=== PATIENT | female | born 1990 | race Caucasian/White ===

== ENCOUNTER → 2022-03-13 14:11 | Outpatient (BNVA) | payer OTHER, SELFPAY | PROVIDERS: PCP Physician Assistant; Visit Provider Podiatrist Foot & Ankle Surgery | DX: M79.672 Pain in left foot (principal); M79.671 Pain in right foot; M62.40 Contracture of muscle, unspecified site; E10.10 Type 1 diabetes mellitus with ketoacidosis without coma | CPT/HCPCS: 73630; 83036 ==

== ENCOUNTER 2022-03-21 12:48 | Day surgery (SDC) | payer OTHER, SELFPAY ==
[2022-03-20 13:58] VITALS: BMI 38.9
[2022-03-21] VITALS (8 sets, daily range): BP systolic 113–131; BP diastolic 59–87; PULSE 67–82; RESP 16–18; TEMP 36.1–36.8; O2SAT 95–99
[2022-03-21 12:59] LABS: OR HCG Qualitative Urine Negative (Negative)
[2022-03-21] MEDS: acetaminophen 1,000 MG/100 ML PIGGYBACK 400 MG IV (13:41)
[2022-03-21] MEDS: sodium chloride 0.9% 1,000 ML 30 ML IV (13:41)
--- NOTE | 2022-03-21 14:02 | W.PM.OPSUD ---
Surgery/Procedure H&P Update DATE OF PROCEDURE: March 21, 2022 DATE H&P PERFORMED: 03/18/22 CHANGES TO PREVIOUS DOCUMENTATION: no changes PREOP DIAGNOSIS: Right foot extensor tendon contracture PLANNED PROCEDURE: Operation Date: 03/21/22 14:10 Proposed Procedures p Right foot extensor hallucis longus lengthening CPT 92835 M62.471(Right) - Cedrick Rodriguez DPM
[2022-03-21] MEDS: ceFAZolin 2,000 MG in sodium chloride 0.9% (plus) 50 ML 100 MG IV (14:09)
--- NOTE | 2022-03-21 14:28 | ANES.PREANE2 ---
Pre-Anesthetic Assessment Height/Weight: Height 1.6 m Weight 99.79 kg Temp Pulse Resp BP Pulse Ox O2 Del Method 98.2 F 82 18 131/68 97 03/21/22 13:09 03/21/22 13:09 03/21/22 13:09 03/21/22 13:09 03/21/22 13:09 03/21/22 13:40 Preop Diagnosis: Right foot extensor tendon contracture Operation Date: 03/21/22 14:10 Proposed Procedures p Right foot extensor hallucis longus lengthening CPT 39818 M62.471(Right) - Cedrick Rodriguez DPM Familial anesthetic complications: none Was Beta Danilo taken within 24 hours: N/A Was Clonidine taken within 24 hours: N/A Last intake: Intake Last Liquid Date 03/21/22 Last Liquid Time 07:00 Last Solid Date 03/21/22 Last Solid Time 01:00 Social No alcohol and No tobacco Exam alert, oriented x 3, clear to auscultation bilaterally and regular rate & rhythm Airway Submandibular: within normal limits Cervical ROM: within normal limits Mallampati: Class II Dentition: full Pulmonary Asthma Metabolic Morbid Obesity Anesthetic Plan ASA status: 2 Anesthesia: MAC Medications/Allergies Home Medications Medication Instructions Recorded Confirmed Last Taken Type albuterol sulfate 90 mcg/actuation 1 puff inhalation QID 03/13/22 03/21/22 Unknown History aerosol inhaler Allergies Allergy/AdvReac Type Severity Reaction Status Date / Time No Known Allergies Allergy Verified 03/20/22 13:54 Current Medications Generic Name Dose Route Start Last Admin Trade Name Freq PRN Reason Stop Dose Admin Sodium Chloride 1,000 mls @ 30 mls/hr 03/21/22 13:00 03/21/22 13:41 Sodium Chloride 0.9% IV 03/22/22 12:59 30 mls/hr .Q24H MIESHA Administration PFSH Anesthesia Family History Grandmother Cancer Breast, Thyroid, ovarian Social History Smoking and tobacco status: former smoker Alcohol intake: never Data Anesthesia Cardiac Studies: No Data to Display
[2022-03-21] MEDS: ibuprofen 800 mg tablet PO (16:15)
--- NOTE | 2022-03-23 12:17 | P.OP_ITS ---
Operative Report Date of procedure: March 23, 2022 Pre-op diagnosis: Preop Diagnosis Right foot extensor tendon contracture Post-op diagnosis: Same Post-op findings: Contracted right foot extensor hallucis longus tendon and first metatarsophalangeal joint capsule Procedure done: Extensor hallucis longus lengthening of right foot CPT 70576 Implants: None Surgeon: Denise Dubose.P.MPrashant Estimated blood loss: Less than 5 cc Complications: None Findings: See above Procedure: Patient is a 31-year-old female that has a history of right foot contracted extensor hallucis longus tendon with fixated hallux extensus. The patient has had the aforementioned chief complaint for some time. Conservative treatment measures have been attempted and the patient has opted for surgical intervention at this time. A lengthy discussion regarding the procedure, including risks and complications has been had with the patient and is noted in the recent clinic note. Written and verbal consent have been obtained. All patient questions have been answered to the patient?s satisfaction. No written or verbal guarantees have been given or implied. The patient has been NPO since midnight. The history has been reviewed and the history and physical is current. The signed consent was confirmed and placed in the patient chart. Patient imaging has been reviewed and is consistent with the diagnosis. Under mild sedation, the patient was brought into the operating room and placed on the table in the supine position. IV antibiotics were given by the anesthesia team as preoperative surgical prophylaxis. IV sedation was then performed by the anesthesia team. A local field block was then performed using 0.5% Marcaine plain. A pneumatic tourniquet was then placed about the right ankle. The operative extremity was then prepped and draped in the usual fashion. The extremity was then elevated and exsanguinated before the tourniquet was inflated to 250 mmHg. After inflation, the following procedure was then performed. Attention was directed to the dorsal aspect of the right first metatarsophalangeal joint where a 5 cm incision was made medial to the extensor hallucis longus tendon. Dissection was carried down through subcutaneous and superficial fascia to the level of the tendon. A 15 blade was then used to split the tendon longitudinally before making a transverse split medially distally and laterally proximally in classic Z-lengthening fashion. There were noted to be adhesions to the dorsal capsule of first metatarsophalangeal joint. These were released with a #15 blade and the hallux was noted to sit in an appropriate anatomical location. With the hallux in the appropriate position the extensor hallucis longus tendon was repaired at this length using 3-0 Ethibond. The patient was noted to have increased dorsiflexion at this point. The site was then irrigated with copious amounts sterile saline before attention was directed to closure. Deep tissue was closed with 3-0 Vicryl followed by subcuticular closure with 4-0 Vicryl and skin closed with 4-0 nylon in horizontal mattress fashion. The tourniquet was released and good hyperemic response was noted to all digits of the right foot. The incision site was dressed with Adaptic 4 x 4 gauze Kerlix and Hector bandage. The patient tolerated the procedure and anesthesia well and without complication. The patient was transported from the operating room to the recovery room with vital signs stable and vascular status intact to all digits of the right foot. The patient was given both written and verbal instructions to remain weightbearing as tolerated in postoperative shoe to the operative extremity, to keep dressings/splint clean, dry and intact and to take pain m edication as directed. The patient will follow-up in the outpatient setting at their scheduled appointment. The patient was discharged with my personal number and was instructed to call if any questions or issues should arise. They were discharged home once anesthesia criteria was met.
== END 2022-03-21 16:30 | disposition home or self-care (01) ==
PROVIDERS: Anesthesiology; PCP Physician Assistant; Visit Provider Podiatrist Foot & Ankle Surgery
PROC: (CPT 28261; principal; 2022-03-21 14:00)
DX: M24.574 Contracture, right foot (principal); J45.909 Unspecified asthma, uncomplicated; E66.01 Morbid (severe) obesity due to excess calories; Z68.39 Body mass index [BMI] 39.0-39.9, adult; Z87.891 Personal history of nicotine dependence
CPT/HCPCS: 27685; 81025; 84703; J0131; J0690; J2250; J2704; J3010; J3490; J7030

== ENCOUNTER 2023-12-30 00:45 | Emergency (ER) | payer MEDICAID, SELFPAY ==
[2023-12-30 00:56] VITALS: BP 147/85; PULSE 78; RESP 16; TEMP 36.9; O2SAT 97; BMI 40.7
--- NOTE | 2023-12-30 01:01 | XRR_ITS ---
PROCEDURE INFORMATION: Exam: XR Right Ankle Exam date and time: 12/30/2023 1:25 AM Age: 33 years old Clinical indication: Injury or trauma; Fall; Other: Pain TECHNIQUE: Imaging protocol: Radiologic exam of the right ankle. Views: 3 or more views. COMPARISON: CR XR foot RT min 3V* [id number] 03/13/2022 2:16 PM FINDINGS: Bones/joints: No acute fracture or dislocation. Mid tarsal degenerative changes. Soft tissues: Mild soft tissue swelling of the ankle. Trace ankle effusion. XR/XR ankle RT min 3V* [id number] IMPRESSION: 1. No acute fracture or dislocation. 2. Trace ankle effusion.
--- NOTE | 2023-12-30 01:02 | XRR_ITS ---
PROCEDURE INFORMATION: Exam: XR Right Foot Exam date and time: 12/30/2023 1:28 AM Age: 33 years old Clinical indication: Injury or trauma; Fall; Other: Pain TECHNIQUE: Imaging protocol: Radiologic exam of the right foot. Views: 3 or more views. COMPARISON: CR XR foot RT min 3V* [id number] 03/13/2022 2:16 PM FINDINGS: Bones/joints: No acute fracture or dislocation. Mid tarsal degenerative changes. Soft tissues: Trace ankle effusion. XR/XR foot RT min 3V* [id number] IMPRESSION: 1. No acute fracture or dislocation. 2. Trace ankle effusion.
--- NOTE | 2023-12-30 01:07 | ED_ITS ---
HPI - Extremity Problem General: Chief complaint: Extremity Injury, Lower Stated complaint: fell off porch right ankle foot injury Time Seen by Provider: 12/30/23 00:50 History of Present Illness: Patient fell off her porch and complaining of right lateral ankle pain. Patient has had previous right foot surgery by Dr. Tejada. Related Data Home Medications Medication Instructions Recorded Confirmed albuterol sulfate 90 mcg/actuation 1 puff inhalation QID 03/13/22 07/18/23 aerosol inhaler Previous Rx's Medication Instructions Recorded Wheelchair #1 ea 03/28/22 Custom Inserts #1 ea 07/24/22 meloxicam 7.5 mg tablet 7.5 mg PO .Twice daily #14 tabs 12/30/23 Allergies Allergy/AdvReac Type Severity Reaction Status Date / Time No Known Allergies Allergy Verified 12/30/23 01:00 Review of Systems General: Reports: 10 or more systems reviewed and unremarkable except in HPI and below PFSH ED PFSH: Family History Grandmother Cancer Breast, Thyroid, ovarian Social History Smoking and tobacco/nicotine status: former use of tobacco/nicotine Alcohol intake: never Female Reproductive History: Date of last menstrual period: 06/25/23 Physical Exam Const: COMMON NORMALS: no acute distress, average body habitus, patient oriented x3, no limitations, healthy appearing, alert and well nourished Neck/C-Spine: COMMON NORMALS: no JVD Chest: COMMONS NORMALS: normal inspection of the chest and normal palpation of entire chest wall Resp: COMMON NORMALS: normal respiratory effort, No retractions, No use of accessory muscles and clear to auscultation bilaterally AUSCULTATION: clear to auscultation bilaterally Cardio: COMMON NORMALS: no JVD, regular rate, regular rhythm, S1 normal heart sound present, S2 normal heart sound present, No gallops present (Cardio), No clicks present (Cardio), No murmurs present (Cardio) and No rub (Cardio) RATE: regular rate RHYTHM: regular rhythm HEART SOUNDS: S1 normal heart sound present and S2 normal heart sound present GI: COMMON NORMALS: Normal to inspection, nondistended, normoactive bowel sounds present, Soft to palpation, non-tender, No hepatosplenomegaly present and no masses PALPATION: Yes Soft to palpation and Yes No hepatosplenomegaly present Extremity: NARRATIVE EXTREMITY EXAM: Right lateral ankle tenderness with palpation mild swelling, limited range of motion secondary to pain, no obvious step-off crepitus or deformity Neuro: COMMON NORMALS: patient oriented x3 SENSORIUM/ORIENTATION: Yes alert Course Vital Signs: Vital signs: Vital Signs Temperature 98.5 F 12/30/23 00:56 Pulse Rate 78 12/30/23 02:20 Respiratory Rate 16 12/30/23 00:56 Blood Pressure 143/101 12/30/23 02:20 Pulse Oximetry 98 12/30/23 02:20 Oxygen Delivery Me thod Room Air 12/30/23 00:56 MDM - Extremity (Nontraumatic) Medical Decision Making X-rays were read by myself preliminary is negative for fracture. Patient be discharged home and we will call them with the official results of the x-rays. Medical Records I reviewed the patient's medical records. Lab Data I reviewed the patient's lab results. Radiology Impressions Foot X-Ray 12/30/23 01:02 IMPRESSION: 1. No acute fracture or dislocation. 2. Trace ankle effusion. All radiology interpretation(s) finalized by discharge Discharge Plan Discharge Patient Disposition: Home Clinical Impression: Right ankle sprain Qualifiers: Encounter type: initial encounter Involved ligament of ankle: unspecified ligament Qualified Code(s): S93.401A - Sprain of unspecified ligament of right ankle, initial encounter Condition: Stable Prescriptions: New meloxicam 7.5 mg tablet 7.5 mg PO .Twice daily Qty: 14 0RF No Action albuterol sulfate 90 mcg/actuation HFA aerosol inhaler 1 puff inhalation QID (DME) Custom Inserts See Rx Instructions .Route .MEDSUPPLY Qty: 1 0RF Rx Instructions: As directed (DME) Wheelchair See Rx Instructions .Route .MEDSUPPLY Qty: 1 0RF Rx Instructions: As directed to [facility].O.[facility] Discharge Orders: Discharge ED (Routine); Ordered 12/30/23 Ordered By: Khai Ellsworth Patient Instructions: Ankle Sprain (ED) Activity Restrictions/Additional Instructions: Your x-rays were preliminarily read by the radiologist as negative for fracture. We will call you with the results once we officially get them. If they are anything other than negative there may be a change in treatment. Otherwise follow-up with your family practitioner in the next 7 days for further evaluation as needed. Coding Level of Care Code ED Wet Machine Tender for Timothy Stoner
[2023-12-30 02:20] VITALS: BP 143/101; PULSE 78; O2SAT 98
[2023-12-30] MEDS: ibuprofen 800 mg tablet PO (02:55)
[2023-12-30] MEDS: acetaminophen 500 mg Tablet 1000 MG PO (04:04)
[2023-12-30 05:05] VITALS: BP 150/80; PULSE 74; O2SAT 98
== END 2023-12-30 05:08 | disposition home or self-care (01) ==
PROVIDERS: Emergency Provider Emergency Medicine
DX: S93.401A Sprain of unspecified ligament of right ankle, initial encounter (principal); Z87.891 Personal history of nicotine dependence; W17.89XA Other fall from one level to another, initial encounter
CPT/HCPCS: 73610; 73630; 99283; E0114

== ENCOUNTER 2024-10-30 19:58 | Emergency (ER) | payer MEDICAID, SELFPAY ==
--- OUTSIDE RECORDS SUMMARY | 2023-05-02 04:30 | XMS_ITS ---
Author Organization [facility] John montaño Billing Info Address [address] [place] [id number] Care Team Providers Care Provisioning Specialist Name Role Phone AIME RODRIGUEZ [phone] REASON FOR VISIT Hospital Encounters Encounter Location Date Provider Diagnosis [id number] [address] [place] [address] 05/02/2023 AIME RODRIGUEZ Plan Of Treatment No Information Progress Notes * Lana HAYESaDOB:1990 (34 yo F)Acc No.[id number]:05/02/2023 PROGRESS NOTE Patient: Vance MURPHY Provider: Karina RODRIGUEZ MD :1990 A ge:32 Y S ex:Female Date:05/02/2023 C HN#:[id number] Address:[address] [place], [place] [id number] Subjective: * Chief Complaints: * 1 . Hospital. * Medical History: Objective: * Vitals: Assessment: Plan: * Treatment: * Care Plan Details* * This progress note has not b een verified nor is it considered complete until locked and signed by the provider. Sign off status: Pending * Provider: Karina RODRIGUEZ MD Date: 05/02/2023 Generated for Jonn west/Fernando/eTjohnsmitting on: 10/30/2024 08:04 PM CDT
--- OUTSIDE RECORDS SUMMARY | 2024-10-30 20:03 | XMS_ITS | Continuity of Care Document ---
Author Organization [facility]. If a dditional information is needed, contact Health Information Management at [phone] Address [address] [place] [address] Phone Care Team Providers Care International Marketing Intern Name Role Phone Unavailable Unavailable Unavailable Unavailable Unavailable Unavailable Unavailable Unavailable Unavailable Unavailable Unavailable Unavailable Problems ENCOUNTER FOR OTHER SPECIFIE D SCREENING(Z36.89) Onset:12-May-2023 Comments:Onset Date: 20230502 O30.049(O30.049) Onset:02-May-2023 Comments:Onset Date: 20230502 O26.899(O26.899) Onset:02-May-2023 Comments:Onset Date: 20230502 Onset:02-May-2023 Shun Feldman MD Allergies and Adverse Reactions No Known Allergies(Allergy) Onset: 02-May-2023 Medications hydrOXYzine pamoate 25 MG Or al Capsule;25 MILLIGRAM PO QID PRN Start:02-May-2023 Comments:25 MG PO QID PRN As Needed for Abdominal Cramps/Pain Encounters Ambulatory 02-May-2023 18:47 EDDOC EDDOC Generic for EDM (Attending) [facility] pre-admission 02-May-2023 [facility]
--- OUTSIDE RECORDS SUMMARY | 2024-10-30 20:04 | XMS_ITS | Patient Health Record ---
Author Organization Karina BONILLA MD C Address [address] [place] [id number] Support Name Relationship Address Phone LUPE HAYES Guarantor Unknown [phone] Allergies No Known Allergies Reason For Referral No Information Medications Medication SIG (Take, Route, Frequency, Duration) Notes Start Date End Date Status Baby Aspirin 18mg Active Plan Of Treatment Pending Test Test Name Order Date UA DIP STICK 05/21/2021 Insurance Providers Payer Name Payer Address Payer Phone Subscriber Number Group Number Insured Name Patient Relationship to Insured Coverage Start Date Coverage End Date [employer] [address] [place] [address] [place] [address] LUPE HAYES Self - patient is the insured
--- OUTSIDE RECORDS SUMMARY | 2024-10-30 20:04 | XMS_ITS | Patient Health Record ---
Author Organization [facility] John montaño Billing Info Address [address] [place], [place] [id number] Support Name Relationship Address Phone Vance Christianson Guarantor Unknown [phone] Reason For Referral No Information Plan Of Treatment No Information Insurance Providers Payer Name Payer Address Payer Phone Subscriber Number Group Number Insured Name Patient Relationship to Insured Coverage Start Date Coverage End Date [facility] CHOICE PLUS POS [address] [address] [facility] [place], [place] [id number] [phone] [id number] Vance Christianson Self - patient is the insured 4
[2024-10-30 20:12] VITALS: BP 134/82; PULSE 72; RESP 16; TEMP 36.8; O2SAT 100; BMI 38.0
[2024-10-30 20:34] VITALS: BP 140/95; O2SAT 99
--- NOTE | 2024-10-30 21:37 | ED_ITS ---
Documented by User: Anatoly Blanc DO 10/30/24 23:12 HPI - Animal Bite 2 General: Chief Complaint: Animal Bite Stated Complaint: L middle to bit by a snake possible copperhead Time Seen by Provider: 10/30/24 20:23 History of Present Illness: Patient presents with a snake bite to the tip of the left middle toe that occurred at approximately 06:50 today. The patient believes it may have been a copperhead snake but is not certain of the species identification. Patient reports significant pain at the bite site and states they have not taken any pain medication prior to arrival. Patient is expressing considerable discomfort and requesting pain relief, specifically mentioning ibuprofen. Patient reports progressive swelling of the affected area over the past two hours. Patient has a history of previous snake bite with residual scar tissue. Medical history is significant for prediabetes. No known drug allergies. Related Data Home Medications ?Medication ?Instructions ?Recorded ?Confirmed albuterol sulfate 90 mcg/actuation 1 puff inhalation Q ID 03/13/22 07/18/23 aerosol inhaler Previous Rx's ?Medication ?Instructions ?Recorded Wheelchair #1 ea 03/28/22 Custom Inserts #1 ea 07/24/22 meloxicam 7.5 mg tablet 7.5 mg PO .Twice daily #14 t abs 12/30/23 cephalexin 500 mg capsule 500 mg PO BID 5 days #10 cap s 10/31/24 ondansetron 4 mg disintegrating 4 mg PO Q8H PRN nausea and 10/31/24 tablet vomiting #30 tabs oxycodone-acetaminophen 5 mg-325 1 tab PO TID PRN pain #20 tabs 10/31/24 mg tablet (Percocet) Allergies Allergy/AdvReac Type Severity Reaction Status Date / Time No Known Allergies Allergy Verified 12/30/23 01:00 Review of Systems 2 General: Reports: 10 or more systems reviewed and unremarkable except in HPI and below PFSH ED 2 PFSH: Family History Grandmother Cancer Breast, Thyroid, ovarian Social History Smoking and tobacco/nicotine status: former use of tobacco/nicotine Alcohol intake: never Physical Exam 2 Const: COMMON NORMALS: no acute distress, patient oriented x3, alert and well nourished HENMT: COMMON NORMALS: normocephalic HEAD & SCALP: normocephalic Eye: COMMON NORMALS: Equal, round and reactive pupils present, EOMs intact bilaterally and conjunctivae normal CONJUNCTIVA: Yes conjunctivae normal P UPIL: Yes Equal, round and reactive pupils present Neck/C-Spine: COMMON NORMALS: full ROM, no lymphadenopathy, supple, no meningeal signs, no JVD and Thyroid normal THYROID: Thyroid normal Chest: COMMONS NORMALS: normal inspection of the chest and normal palpation of entire chest wall Resp: COMMON NORMALS: normal respiratory effort, No retractions, No use of accessory muscles, clear to auscultation bilaterally and percussion normal A USCULTATION: clear to auscultation bilaterally PERCUSSION: percussion normal Cardio: COMMON NORMALS: no JVD GI: COMMON NORMALS: Normal to inspection, nondistended, normoactive bowel sounds present, Soft to palpation, non-tender, No hepatosplenomegaly present, no masses and no bruits PALPATION: Yes Soft to palpation and Yes No hepatosplenomegaly present Extremity: NARRATIVE EXTREMITY EXAM: Good capillary refill, bounding pulses, mild swelling around the ankle Neuro: COMMON NORMALS: patient oriented x3 SENSORIUM/ORIENTATION: Yes alert MENINGEAL SIGNS: Yes no meningeal signs Skin: COMMON NORMALS: no rashes or lesions noted, turgor normal and no jaundice GENERAL SKIN EXAM: no rashes or lesions noted and turgor normal Course 2 Vital Signs: Vital signs: Vital Signs Temperature 98.3 F 10/30/24 20:12 Pulse Rate 72 10/30/24 23:18 Respiratory Rate 17 10/30/24 23:18 Blood Pressure 106/64 10/30/24 23:18 Pulse Oximetry 100 10/30/24 23:18 Oxygen Delivery Me thod Room Air 10/30/24 23:18 MDM - Animal Bite Medical Decision Making 1. Snake Bite to Right Middle Toe, Possible Copperhead: - Although patient believes it was a copperhead snake, species identification remains uncertain - Will observe for signs of envenomation including progressive swelling, ecchymosis, and systemic symptoms - Obtain baseline laboratory studies including CBC, CMP, coagulation studies, and CPK - Copperhead bites typically do not require antivenom but will monitor closely - Will establish IV access for medication administration and in case antivenom becomes necessary 2. Pain Management: - Administer analgesics for pain control - Consider NSAIDs if no contraindications - Elevate affected extremity - Apply cold compresses to affected area 3. Prediabetes: - Monitor blood glucose levels during observation period - Continue home medications as appropriate 4. Disposition: - Extended observation required to monitor for progression of symptoms - Will reassess every 30-60 min and determine need for admission versus discharge in the next several hours or rarely the need for anti-venom. Re-evaluation at 23:00 patient has not had any significant swelling past the distal ankles she does report some pain that has been running up her legs but it does not appear to be appreciably swollen capillary refill and pulses still tend to be intact her pain is coming back somewhat her vital signs remained stable so far the labs that have returned after initial hemolysis of the labs have been within normal range. Will continue observation and then will plan on repeating labs in several hours and if no significant changes the patient will likely be able to be discharged home with conservative and observational care. I will have to sign this patient out to the overnight emergency department physician to follow-up on the labs and determine disposition. Lab Data 10/30/24 21:45 10/30/24 22:26 Laboratory Results WBC 11.90 10^3/uL (3.29-11.43) H 10/30/24 21:45 RBC 5.46 10^6/uL (3.85-5.65) 10/30/24 21:45 Hgb 15.70 g/dL (11.27-16.99) 10/30/24 21:45 Hct 46.8 % (36-47) 10/30/24 21:45 MCV 85.7 fl (85-98) 10/30/24 21:45 MCH 28.8 pg (27-33) 10/30/24 21:45 MCHC 33.5 g/dL (30-55) 10/30/24 21:45 RDW 12.9 % (12.1-15.1) 10/30/24 21:45 Plt Count 318 10^3/cmm (157-399) 10/30/24 21:45 MPV 9.6 fL (7.4-10.4) 10/30/24 21:45 Neut % (Auto) 72.3 % 10/30/24 21:45 Lymph % (Auto) 19.4 % 10/30/24 21:45 [place] % (Auto) 6.5 % 10/30/24 21:45 Eos % (Auto) 0.6 % 10/30/24 21:45 Baso % (Auto) 0.4 % 10/30/24 21:45 Neut # (Auto) 8.61 10^3/uL (1.8-7.7) H 10/30/24 21:45 Lymph # (Auto) 2.3 10^3/uL (0.8-4.8) 10/30/24 21:45 [place] # (Auto) 0.8 10^3/uL (0.2-0.9) 10/30/24 21:45 Eos # (Auto) 0.1 10^3/uL (0.0-0.8) 10/30/24 21:45 Baso # (Auto) 0.1 10^3/uL (0.0-0.1) 10/30/24 21:45 Nucleated RBC % (auto) 0 % 10/30/24 21:45 Nucleated RBCs # 0.0 /100WBC 10/30/24 21:45 PT 13.40 SECONDS (12.1-14.9) 10/30/24 22:26 INR 0.96 (0.8-1.2) 10/30/24 22:26 APTT 27.9 SECONDS (23.9-36.7) 10/30/24 22:26 D-Dimer <= 0.27 ug/mLFEU (0-0.59) 10/30/24 22:26 Sodium 140 mmol/L (136-145) 10/30/24 22:26 Potassium 3.7 mmol/L (3.5-5.1) 10/30/24 22:26 Chloride 102 mmol/L (98-107) 10/30/24 22:26 Carbon Dioxide 29 mmol/L (22-29) 10/30/24 22:26 Anion Gap 12.7 (5-19) 10/30/24 22:26 BUN 12 mg/dL (6-20) 10/30/24 22:26 Creatinine 0.7 mg/dL (0.5-0.9) 10/30/24 22:26 GFR Calculation 97.0 mL/min (90-130) 10/30/24 22:26 Glucose 80 mg/dL (65-115) 10/30/24 22:26 Calculated Osmolality 289 mOsm/kg (285-295) 10/30/24 22:26 Lactic Acid Cancelled 10/30/24 21:45 Calcium 9.3 mg/dL (8.5-10.5) 10/30/24 22:26 Total Bilirubin 0.3 mg/dL (0.15-1.2) 10/30/24 22:26 AST 20 U/L (0-32) 10/30/24 22:26 ALT 30 U/L (0-33) 10/30/24 22:26 Alkaline Phosphatase 83 U/L (35-105) 10/30/24 22:26 Creatine Kinase 140 U/L (26-192) 10/30/24 22:26 Total Protein 6.8 g/dL (6.6-8.7) 10/30/24 22:26 Albumin 4.2 g/dL (3.5-5.2) 10/30/24 22:26 Globulin 2.6 g/dL (1.3-4.6) 10/30/24 22:26 No radiology studies performed this visit Discharge Plan Discharge Patient Disposition: Home Clinical Impression: Snake bite Qualifiers: Encounter type: initial encounter Qualified Code(s): W59.11XA - Bitten by nonvenomous snake, initial encounter Condition: Stable Prescriptions: New oxycodone-acetaminophen [Percocet] 5-325 mg tablet 1 tab PO TID PRN (Reason: pain) Qty: 20 0RF ondansetron 4 mg tablet,disintegrating 4 mg PO Q8H PRN (Reason: nausea and vomiting) Qty: 30 0RF cephalexin 500 mg capsule 500 mg PO BID 5 Days Qty: 10 0RF No Action albuterol sulfate 90 mcg/actuation HFA aerosol inhaler 1 puff inhalation QID (DME) Custom Inserts See Rx Instructions .Route .MEDSUPPLY Qty: 1 0RF Rx Instructions: As directed (DME) Wheelchair See Rx Instructions .Route .MEDSUPPLY Qty: 1 0RF Rx Instructions: As directed to H.O.M.E meloxicam 7.5 mg tablet 7.5 mg PO .Twice daily Qty: 14 0RF Discharge Orders: Discharge ED (Routine); Ordered 10/31/24 Ordered By: Manuel Freedman Discharge Diet: Usual diet Discharge Activity: Increase activity as tolerated Patient Instructions: Snake Bite (ED), Patient Portal & [facility] Instructions Print Language: Slovenian Coding Level of Care Code ED Machine Whitener for Chg Fwd Documented by User: Manuel Freedman MD 10/31/24 00:43 HPI - Animal Bite 2 General: Chief Complaint: Animal Bite Stated Complaint: L middle to bit by a snake possible copperhead Time Seen by Provider: 10/30/24 20:23 Related Data Home Medications ?Medication ?Instructions ?Recorded ?Confirmed albuterol sulfate 90 mcg/actuation 1 puff inhalation Q ID 03/13/22 07/18/23 aerosol inhaler Previous Rx's ?Medication ?Instructions ?Recorded Wheelchair #1 ea 03/28/22 Custom Inserts #1 ea 07/24/22 meloxicam 7.5 mg tablet 7.5 mg PO .Twice daily #14 t abs 12/30/23 cephalexin 500 mg capsule 500 mg PO BID 5 days #10 cap s 10/31/24 ondansetron 4 mg disintegrating 4 mg PO Q8H PRN nausea and 10/31/24 tablet vomiting #30 tabs oxycodone-acetaminophen 5 mg-325 1 tab PO TID PRN pain #20 tabs 10/31/24 mg tablet (Percocet) Allergies Allergy/AdvReac Type Severity Reaction Status Date / Time No Known Allergies Allergy Verified 12/30/23 01:00 [facility] ED 2 PFSH: Family History Grandmother Cancer Breast, Thyroid, ovarian Social History Smoking and tobacco/nicotine status: former use of tobacco/nicotine Alcohol intake: never Course 2 Vital Signs: Vital signs: Vital Signs Temperature 98.3 F 10/30/24 20:12 Pulse Rate 72 10/30/24 23:18 Respiratory Rate 17 10/30/24 23:18 Blood Pressure 106/64 10/30/24 23:18 Pulse Oximetry 100 10/30/24 23:18 Oxygen Delivery Me thod Room Air 10/30/24 23:18 MDM - Animal Bite Medical Decision Making 1. Snake Bite to Right Middle Toe, Possible Copperhead: - Although patient believes it was a copperhead snake, species identification remains uncertain - Will observe for signs of envenomation including progressive swelling, ecchymosis, and systemic symptoms - Obtain baseline laboratory studies including CBC, CMP, coagulation studies, and CPK - Copperhead bites typically do not require antivenom but will monitor closely - Will establish IV access for medication administration and in case antivenom becomes necessary 2. Pain Management: - Administer analgesics for pain control - Consider NSAIDs if no contraindications - Elevate affected extremity - Apply cold compresses to affected area 3. Prediabetes: - Monitor blood glucose levels during observation period - Continue home medications as appropriate 4. Disposition: - Extended observation required to monitor for progression of symptoms - Will reassess every 30-60 min and determine need for admission versus discharge in the next several hours or rarely the need for anti-venom. Re-evaluation at 23:00 patient has not had any significant swelling past the distal ankles she does report some pain that has been running up her legs but it does not appear to be appreciably swollen capillary refill and pulses still tend to be intact her pain is coming back somewhat her vital signs remained stable so far the labs that have returned after initial hemolysis of the labs have been within normal range. Will continue observation and then will plan on repeating labs in several hours and if no significant changes the patient will likely be able to be discharged home with conservative and observational care. I will have to sign this patient out to the overnight emergency department physician to follow-up on the labs and determine disposition. Dr. Freedman: Patient signed out to me to continue observation of snake bite of left toe with swelling and pain of the foot. Patient states swelling and pain are much better and states that it feels like the swelling is remitting. Labs are reassuring. I do not feel she will require antivenom therapy. She will be discharged with pain and nausea medication as well as a short course of antibiotics and follow-up to primary care. She knows that if symptoms get worse she is always welcome back to the emergency department. She was given crutches as well as it is very tender to walk on the foot in its current swollen state. Lab Data 10/30/24 21:45 10/30/24 22:26 Laboratory Results WBC 11.90 10^3/uL (3.29-11.43) H 10/30/24 21:45 RBC 5.46 10^6/uL (3.85-5.65) 10/30/24 21:45 Hgb 15.70 g/dL (11.27-16.99) 10/30/24 21:45 Hct 46.8 % (36-47) 10/30/24 21:45 MCV 85.7 fl (85-98) 10/30/24 21:45 MCH 28.8 pg (27-33) 10/30/24 21:45 MCHC 33.5 g/dL (30-55) 10/30/24 21:45 RDW 12.9 % (12.1-15.1) 10/30/24 21:45 Plt Count 318 10^3/cmm (157-399) 10/30/24 21:45 MPV 9.6 fL (7.4-10.4) 10/30/24 21:45 Neut % (Auto) 72.3 % 10/30/24 21:45 Lymph % (Auto) 19.4 % 10/30/24 21:45 [place] % (Auto) 6.5 % 10/30/24 21:45 Eos % (Auto) 0.6 % 10/30/24 21:45 Baso % (Auto) 0.4 % 10/30/24 21:45 Neut # (Auto) 8.61 10^3/uL (1.8-7.7) H 10/30/24 21:45 Lymph # (Auto) 2.3 10^3/uL (0.8-4.8) 10/30/24 21:45 [place] # (Auto) 0.8 10^3/uL (0.2-0.9) 10/30/24 21:45 Eos # (Auto) 0.1 10^3/uL (0.0-0.8) 10/30/24 21:45 Baso # (Auto) 0.1 10^3/uL (0.0-0.1) 10/30/24 21:45 Nucleated RBC % (auto) 0 % 10/30/24 21:45 Nucleated RBCs # 0.0 /100WBC 10/30/24 21:45 PT 13.40 SECONDS (12.1-14.9) 10/30/24 22:26 INR 0.96 (0.8-1.2) 10/30/24 22:26 APTT 27.9 SECONDS (23.9-36.7) 10/30/24 22:26 D-Dimer <= 0.27 ug/mLFEU (0-0.59) 10/30/24 22:26 Sodium 140 mmol/L (136-145) 10/30/24 22:26 Potassium 3.7 mmol/L (3.5-5.1) 10/30/24 22:26 Chloride 102 mmol/L (98-107) 10/30/24 22:26 Carbon Dioxide 29 mmol/L (22-29) 10/30/24 22:26 Anion Gap 12.7 (5-19) 10/30/24 22:26 BUN 12 mg/dL (6-20) 10/30/24 22:26 Creatinine 0.7 mg/dL (0.5-0.9) 10/30/24 22:26 GFR Calculation 97.0 mL/min (90-130) 10/30/24 22:26 Glucose 80 mg/dL (65-115) 10/30/24 22:26 Calculated Osmolality 289 mOsm/kg (285-295) 10/30/24 22:26 Lactic Acid Cancelled 10/30/24 21:45 Calcium 9.3 mg/dL (8.5-10.5) 10/30/24 22:26 Total Bilirubin 0.3 mg/dL (0.15-1.2) 10/30/24 22:26 AST 20 U/L (0-32) 10/30/24 22:26 ALT 30 U/L (0-33) 10/30/24 22:26 Alkaline Phosphatase 83 U/L (35-105) 10/30/24 22:26 Creatine Kinase 140 U/L (26-192) 10/30/24 22:26 Total Protein 6.8 g/dL (6.6-8.7) 10/30/24 22:26 Albumin 4.2 g/dL (3.5-5.2) 10/30/24 22:26 Globulin 2.6 g/dL (1.3-4.6) 10/30/24 22:26 Discharge Plan Discharge Patient Disposition: Home Clinical Impression: Snake bite Qualifiers: Encounter type: initial encounter Qualified Code(s): W59.11XA - Bitten by nonvenomous snake, initial encounter Condition: Stable Prescriptions: New oxycodone-acetaminophen [Percocet] 5-325 mg tablet 1 tab PO TID PRN (Reason: pain) Qty: 20 0RF ondansetron 4 mg tablet,disintegrating 4 mg PO Q8H PRN (Reason: nausea and vomiting) Qty: 30 0RF cephalexin 500 mg capsule 500 mg PO BID 5 Days Qty: 10 0RF No Action albuterol sulfate 90 mcg/actuation HFA aerosol inhaler 1 puff inhalation QID (DME) Custom Inserts See Rx Instructions .Route .MEDSUPPLY Qty: 1 0RF Rx Instructions: As directed (DME) Wheelchair See Rx Instructions .Route .MEDSUPPLY Qty: 1 0RF Rx Instructions: As directed to H.O.M.E meloxicam 7.5 mg tablet 7.5 mg PO .Twice daily Qty: 14 0RF Discharge Orders: Discharge ED (Routine); Ordered 10/31/24 Ordered By: Manuel Freedman Discharge Diet: Usual diet Discharge Activity: Increase activity as tolerated Patient Instructions: Snake Bite (ED), Patient Portal & [facility] Instructions Print Language: Slovenian Coding Level of Care Code ED Machine Whitener for Timothy Stoner
[2024-10-30] MEDS: morphine 4 mg/mL SDV 1 mL 6 MG IVP (21:53)
[2024-10-30 22:09] LABS: Hematocrit 46.8 % (36-47); Hemoglobin 15.70 g/dL (11.27-16.99); Mean Corpuscular HGB Conc 33.5 g/dL (30-55); Mean Corpuscular Hemoglobin 28.8 pg (27-33); Mean Corpuscular Volume 85.7 fl (85-98); Nucleated Red Blood Cells % 0 %; Platelet Count 318 10^3/cmm (157-399); Red Blood Count 5.46 10^6/uL (3.85-5.65); White Blood Count 11.90 10^3/uL (3.29-11.43)
[2024-10-30 22:19] VITALS: BP 132/89; PULSE 73; RESP 18; O2SAT 100
[2024-10-30 22:44] LABS: INR 0.96 (0.8-1.2); Prothrombin Time 13.40 SECONDS (12.1-14.9)
[2024-10-30 22:45] LABS: Partial Thromboplastin Time 27.9 SECONDS (23.9-36.7)
[2024-10-30 22:49] LABS: Alanine Aminotransferase 30 U/L (0-33); Albumin Level 4.2 g/dL (3.5-5.2); Alkaline Phosphatase 83 U/L (35-105); Anion Gap 12.7 (5-19); Aspartate Amino Transferase 20 U/L (0-32); Blood Urea Nitrogen 12 mg/dL (6-20); Calcium 9.3 mg/dL (8.5-10.5); Carbon Dioxide 29 mmol/L (22-29); Chloride 102 mmol/L (98-107); Creatinine Clr Calc Pharmacy 128.3175; Globulin 2.6 g/dL (1.3-4.6); Glucose 80 mg/dL (65-115); Osmolality Calculated 289 mOsm/kg (285-295); Potassium 3.7 mmol/L (3.5-5.1); Sodium 140 mmol/L (136-145); Total Protein 6.8 g/dL (6.6-8.7)
[2024-10-30] MEDS: HYDROmorphone 0.5 MG/0.5 ML INJ 1 MG IVP (23:17)
[2024-10-30 23:18] VITALS: BP 106/64; PULSE 72; RESP 17; O2SAT 100
[2024-10-30] MEDS: ondansetron 2 mg/ML SDV 2 mL 4 MG IVP (23:55)
[2024-10-31 01:02] VITALS: RESP 17
[2024-10-31] MEDS: oxyCODONE-APAP 5-325 mg Tablet 1 TAB PO (01:02)
[2024-10-31 02:01] VITALS: BP 125/74; PULSE 87; RESP 16; O2SAT 100
[2024-10-31] MEDS: ondansetron 2 mg/ML SDV 2 mL 4 MG IVP (02:01)
== END 2024-10-31 02:02 | disposition home or self-care (01) ==
PROVIDERS: Family Medicine; Emergency Provider Student in an Organized Health Care Education/Training Program
DX: S90.475A Other superficial bite of left lesser toe(s), initial encounter (principal); W59.11XA Bitten by nonvenomous snake, initial encounter; Z87.891 Personal history of nicotine dependence
CPT/HCPCS: 36415; 80053; 82550; 85025; 85378; 85610; 85730; 87040; 96374; 96375; 96376; 99284; J1171; J2270; J2405; J9999